=== PATIENT | male | born 1940 | race Caucasian/White ===

== ENCOUNTER 2021-03-19 14:22 | Emergency (ER) | payer MEDICARE ==
[2021-03-20 21:09] LABS: SARS-CoV-2 PCR by NAA Not Detected (NotDetected)
== END 2021-03-19 16:40 | disposition home or self-care (01) ==
LOC: MADERS 14:22
DX: J06.9 Acute upper respiratory infection, unspecified (principal); Z20.822 Contact with and (suspected) exposure to COVID-19; E03.9 Hypothyroidism, unspecified; Z79.899 Other long term (current) drug therapy; Z79.82 Long term (current) use of aspirin
CPT/HCPCS: 71046; U0003; U0005

== ENCOUNTER 2023-01-11 07:58 | Emergency (ER) | payer MEDICARE ==
[~2023-01-11 07:58] MED LIST: Sodium Chloride 0.9% 1,000 ML BAG ONE
[2023-01-11 09:28] LABS: Band 15 % (5-11); Lymphocytes 11 % (21-51); MDiff Complete? YES; Mean Corpuscular HGB CONC 32.6 g/dL (32.0-36.0); Mean Corpuscular Hemoglobin 30.3 pg (27.0-31.0); Mean Corpuscular Volume 93.1 fl (78.0-98.0); Mean Platelet Volume 10.7 fL (7.4-10.4); Monocytes 8 % (0-10); Neutrophil 66 % (42-75); Platelet Adequacy Comment Appears Adequate; Platelet Count 130 10x3/uL (130-400); RBC Distribution Width 16.6 % (11.5-14.5); Red Blood Cell (RBC) Count 4.93 mill/uL (4.70-6.10); White Blood Cell (WBC) Count 6.2 10x3/uL (4.8-10.8)
[2023-01-11 09:29] LABS: ALT (SGPT) 272 U/L (8-55); AST (SGOT) 119 U/L (5-34); Albumin 3.5 g/dL (3.4-4.8); Alkaline Phosphatase 239 U/L (40-110); Anion Gap 15 mmol/L (10-20); BUN (Urea Nitrogen) 15 mg/dL (8.4-25.7); Bilirubin, Total 1.8 mg/dL (0.2-1.2); Calc. Creatinine Clearance 0 mL/min (70-130); Calcium 9.7 mg/dL (7.8-10.44); Carbon Dioxide 28 mmol/L (23-31); Chloride 100 mmol/L (98-107); Estimated GFR 76; Globulin 2.5 g/dL (2.4-3.5); Glucose 105 mg/dL (83-110); Potassium 4.2 mmol/L (3.5-5.1); Sodium 139 mmol/L (136-145)
[2023-01-11 09:30] LABS: Troponin I 0.098 ng/mL (< 0.028)
[2023-01-11] MEDS ORDERED: Sodium Chloride 0.9% 100 ML BAG ONE (09:36)
[2023-01-11] MEDS ORDERED: Iopamidol 370 76% 200 ML VIAL ONE (09:36)
[2023-01-11] MEDS ORDERED: Aspirin 325 MG TAB ONE (09:45)
[2023-01-11 10:07] LABS: SARS-CoV-2 NAA Rapid Test Not Detected (NotDetected)
[2023-01-11 12:29] LABS: Troponin I 0.094 ng/mL (< 0.028)
[2023-01-11 13:50] LABS: Bilirubin Moderate (Negative); Blood, Urine Small (Negative); Clarity Slightly Cloudy (Clear); Glucose, Urine (Dipstick) Negative (Negative); Ketone, Urine 15 mg/dL (Negative); Leukocyte Negative (Negative); Nitrite Negative (Negative); Protein, Urine (Dipstick) 30 mg/dL (Neg-Trace); pH, Urine 5.5 (5.0-9.0)
[2023-01-11 14:06] LABS: RBC/HPF 0-3 HPF (0-3)
[2023-01-11 14:07] LABS: Bacteria/HPF Rare-Few HPF (None Seen); CAUTI Indications for Culture Dysuria,urgency,freq; Squamous Epithelial 0-3 HPF (0-3); WBC/HPF 0-3 HPF (0-3)
[2023-01-11 14:08] LABS: Urine Culture Reflex No No
[2023-01-11] MEDS ORDERED: Sodium Chloride 0.9% 100 ML ONE (15:16)
[2023-01-11] MEDS ORDERED: Cefepime 2 GM VIAL ONE (15:16)
[2023-01-11] MEDS ORDERED: Sodium Chloride 0.9% 250 ML 500 ML ONE (15:16)
[2023-01-11] MEDS ORDERED: Vancomycin 1 GM VIAL ONE (15:16)
== END 2023-01-11 17:48 | disposition short-term general hospital (02) ==
LOC: MADERS 07:58
DX: I21.4 Non-ST elevation (NSTEMI) myocardial infarction (principal); J96.01 Acute respiratory failure with hypoxia; J06.9 Acute upper respiratory infection, unspecified; E03.9 Hypothyroidism, unspecified; I10 Essential (primary) hypertension; F17.220 Nicotine dependence, chewing tobacco, uncomplicated; Z20.822 Contact with and (suspected) exposure to COVID-19
CPT/HCPCS: 0240U; 71045; 71275; 76705; 80053; 81001; 83605; 83880; 84484 ×2; 85025; 87040; 93005; 94760; 36415; 96365; 96366; 96367; J0692; J3370; J3490; J7050